=== PATIENT | male | born 1965 | race Caucasian/White ===

== ENCOUNTER → 2021-05-10 | Outpatient (CLI) | payer OTHER ==
[2021-05-10 09:53] LABS: BASOPHILS % (AUTO) 1 % (0-1); EOSINOPHILS % (AUTO) 2 % (1-7); LYMPHOCYTES % (AUTO) 34 % (22-44); MEAN CORPUSCULAR HEMOGLOBIN 30.6 pg (27.5-34.5); MEAN CORPUSCULAR HGB CONC 35.2 g/dL (33.2-36.2); MEAN PLATELET VOLUME 7.3 fL (7.4-10.4); MONOCYTES % (AUTO) 8 % (2-9); NEUTROPHILS % (AUTO) 56 % (42-75); PLATELET COUNT 312 x10^3/uL (130-400); RED BLOOD COUNT 5.05 x10^6/uL (4.38-5.82); RED CELL DISTRIBUTION WIDTH 12.9 % (9.4-14.8)
[2021-05-10 10:03] LABS: ALANINE AMINOTRANSFERASE 41 U/L (12-78); ALBUMIN 4.1 g/dL (3.4-5.0); ANION GAP 6 mmol/L (5-15); CALCIUM 9.2 mg/dL (8.5-10.1); CHLORIDE 104 mmol/L (98-107)
[2021-05-10 10:14] LABS: ALKALINE PHOSPHATASE 71 U/L (45-117); BILIRUBIN,TOTAL 0.5 mg/dL (0.2-1.0); CHOL/HDL RATIO 4.6; CHOLESTEROL, TOTAL 224 mg/dL (140-239); CREATININE 1.12 mg/dL (0.7-1.3); HDL CHOL % 22 % (26-37); HDL CHOLESTEROL (DIRECT) 49 mg/dL (40-60); LDL CHOLESTEROL,CALCULATED 142 mg/dL (54-169); LDL/HDL RATIO 2.9 (0.5-3.0); TOTAL PROTEIN 7.7 g/dL (6.4-8.2); TRIGLYCERIDES 165 mg/dL (50-200); VLDL CHOLESTEROL 33 mg/dL (0-25)
== END | disposition home or self-care (01) ==
LOC: LAB 09:34
PROVIDERS: ATTEND Family Medicine
DX: Z12.5 Encounter for screening for malignant neoplasm of prostate (principal); Z00.00 Encounter for general adult medical examination without abnormal findings; E66.9 Obesity, unspecified
CPT/HCPCS: 36415; 80053; 80061; 83036; 84153; 84443; 85025; G0103